=== PATIENT | female | born 1960 | race Caucasian/White ===

== ENCOUNTER 2023-05-12 12:26 | Emergency (ER) | payer BC, SELFPAY ==
[2023-05-12 12:28] VITALS: BP 118/85
[2023-05-12 12:50] LABS: % Basophils 0.4 % (0-2); % Eosinophils 0.4 % (0-6); % Immature Granulocytes 0.4 % (0-0.5); % Lymphocytes 15.3 % (20.5-51.1); % Monocytes 14.5 % (1.7-9.3); Absolute Lymphocytes 0.4 10^3/uL (1.2-3.4); Absolute Monocytes 0.4 10^3/uL (0.1-0.6); Absolute Neutrophils 1.7 10^3/uL (1.4-6.5); Hematocrit 34.8 % (37.0-47.0); Hemoglobin 12.3 g/dL (12.0-16.0); Mean Corp Hgb Conc. 35.3 g/dL (33.0-37.0); Mean Corpuscular Volume 84.9 fL (81.0-99.0); Mean Platelet Volume 11.3 fL (7.4-10.4); Nucleated Red Blood Cells % 0 %; Platelet Count 114 10^3/uL (130-400); Red Cell Dist. Width 12.8 % (11.5-14.5); White Blood Cell Count 2.5 10^3/uL (4.8-10.8)
[2023-05-12 13:05] LABS: Lactic Acid 0.9 mmol/L (0.7-2.0)
[2023-05-12 13:07] LABS: ALT (SGPT) 143 U/L (0-35); AST (SGOT) 298 U/L (14-36); Albumin 4.2 g/dl (3.5-5.0); Alkaline Phosphatase 73 U/L (38-126); Blood Urea Nitrogen 13 mg/dl (7-17); Calcium 8.9 mg/dl (8.4-10.2); Carbon Dioxide 25 mmol/L (22-30); Chloride 101 mmol/L (98-107); Glucose 125 mg/dl (70-99); Potassium 3.6 mmol/L (3.5-5.1); Sodium 139 mmol/L (135-145); Total Bilirubin 1.1 mg/dl (0.2-1.3); eGFR > 60.00
[2023-05-12 13:22] LABS: COVID-19 Antigen Negative (Negative)
[2023-05-12 13:36] VITALS: BP 117/48
[2023-05-12 13:38] VITALS: BMI 34.9
--- NOTE | 2023-05-12 13:57 | ED.GENMED ---
History of Present Illness
General
Chief Complaint: Fever
Time Seen by Provider: 05/12/23 13:57
Travel History
Have you had any contact with someone who has COVID-19?: No
Do you have any symptoms of coronavirus? Fever > 100 degrees, chills, cough, shortness of breath, sore throat, loss of taste or smell, muscle aches, or headache?: Yes
Symptoms:: fever
History of Present Illness
History of Present Illness:
HPI: Patient presents with fever that started last night. This is associated with a headache with no neck pain or any change in mental status. She states that she recently returned from [facility] where she was 'in the life for mosquitoes'. She
has no pneumonia or UTI symptoms. She reports no rash. She vomited today and could not tolerate taking additional Tylenol as she did yesterday.
EXAM:
GENERAL: Fairly well appearing in no distress but she has noted to be febrile and she does appear somewhat weak
HEENT: Moist oral mucosa
CARDIOVASCULAR: 2 out of 6 systolic ejection murmur noted in the upper sternal borders, normal heart rate and rhythm, No chest wall tenderness
PULMONARY: No respiratory distress, breath sounds are clear and equal
ABDOMEN: Soft with no peritoneal signs, no tenderness, elevated BMI
NEUROLOGIC: Excellent strength all extremities, no coordination deficits, normal chin to chest testing
PSYCHIATRIC: Appropriate mental status, normal insight and judgement
EXTREMITIES: Nontender, no edema, moves all extremities equally
SKIN: No rash, no lesions
ED COURSE:
2:05 PM: I initially evaluated patient
NUMBER AND COMPLEXITY OF PROBLEMS ADDRESSED AT THE ENCOUNTER
� Chronic conditions affecting care: High blood pressure, hyperlipidemia, diverticulitis, GERD, 'prediabetes'
� Acute Exacerbation and/or Progression of Chronic Illness: This is an acute problem
� Differential Diagnosis includes: Viral syndrome, cholecystitis, UTI, pneumonia, sepsis unlikely
AMOUNT AND/OR COMPLEXITY OF DATA TO BE REVIEWED AND ANALYZED
� I performed an independent evaluation of and my interpretation is:
EKG:
CT:
X-rays: Chest x-ray negative
Laboratory Studies: White count is low at 2.5, ANC 1700, hemoglobin is normal but platelets are slightly low at 114, chemistries unremarkable with exception of mild transaminase elevation, COVID and flu are negative, lactic
normal
Other: Ultrasound shows some gallstones without evidence of cholecystitis
� Review of other/old records: Patient had colonoscopy last year
� Clinical information was obtained by an independent historian: I spoke to her at bedside
� Prescriptions/Medications Considered but not given:
� Further testing considered but not performed:
RISK OF COMPLICATIONS AND/OR MORBIDITY OR MORTALITY OF PATIENT MANAGEMENT
� Social determinants of health affecting care: Lives at home
� Discussion with other providers: Since she just returned from [facility], and reports significant amount of mosquito bites, I reached out to IDDr. Quinones at 2:20 PM
� Escalation of care including admission/observation vs risk of discharge considered: The patient is fairly well appearing. Mild leukopenia noted in the setting of fever. She did have vomiting but no right upper quadrant
tenderness. Ultrasound imaging relatively unremarkable exception of stones but no sign of cholecystitis. Chest x-ray clear. Testing for Dengue, Chickungunya, and Zika are all pending. Urinalysis does show an increased number of white cells
however there is a significant amount squamous epithelial cells. I talked about holding off on antibiotics at this time and waiting for the culture however the patient strong prefers starting antibiotics at this time. I have also given her contact
information for the general surgeon she did have nausea with fever and elevated transaminases with gallstones on imaging but no clear sign for infection.
Past History
Past History
ED Past Medical History: HTN, Hypercholesterolemia, Hypothyroidism and Other (Diverticulitis)
ED Past Surgical History: Gynecological (Hysterectomy), Orthopedic (Ankle ORIF) and Other (Breast reduction, abdominoplasty)
Social History
Tobacco: Non-smoker
Alcohol: None
Family History
Family History: CAD and Other (Brother and father with diverticulitis)
Phy Exam
Physical Exam
Physical Exam:
See HPI
Course
Orders/Labs/Results
Orders:
Orders
05/12/23 12:34
COVID-19 Antigen Urgent
Source: Nasal Swab
Complete Blood Count/With Diff Urgent
Comprehensive Metabolic Panel Urgent
Lactic Acid Urgent
Influenza A+B Rapid Molecular Urgent
YUSEF Source: Nasal Swab
Specimen Description:
05/12/23 12:35
Blood Culture Urgent
YUSEF Source: Blood/Venous
Specimen Description:
05/12/23 14:07
0.9% Sodium Chloride 1000 ml [Nss] 1,000 ml IV BOLUS
Ketorolac [Toradol] 15 mg IV NOW STA
US Abdomen Complete/Upper Urgent
Comment:
Reason For Exam: fever high ALT/AST
05/12/23 14:08
Ondansetron Injectable [Zofran] 4 mg IV NOW STA
CR Chest - 2 Views Urgent
Comment:
Reason For Exam: fever
05/12/23 15:24
Urinalysis Reflex To Culture Urgent
Date Specimen was Collected: 05/12/23
Time Specimen was Collected: 14:11
Urine Microscopic Reflex Cult Urgent
Urine Culture Urgent
YUSEF Source: U
Specimen Description:
Date Specimen was Collected: 05/12/23
Time Specimen was Collected: 14:11
05/12/23 15:29
Add On- LAB Urgent
Tests Added?: Zika, Chikungunya, Dengue - IgG and IgM
05/12/23 16:11
Cephalexin Monohydrate [Keflex] 500 mg PO NOW STA
Abnormal Lab Results
05/12/23 05/12/23
12:34 15:24
WBC 2.5 L 10^3/uL
(4.8-10.8)
RBC 4.10 L 10^6/uL
(4.20-5.40)
Hct 34.8 L %
(37.0-47.0)
Plt Count 114 L 10^3/uL
(130-400)
MPV 11.3 H fL
(7.4-10.4)
Absolute Lymphs (auto) 0.4 L 10^3/uL
(1.2-3.4)
Lymphocytes % 15.3 L %
(20.5-51.1)
Monocytes % 14.5 H %
(1.7-9.3)
Glucose 125 H mg/dl
(70-99)
AST 298 H U/L
(14-36)
ALT 143 H U/L
(0-35)
Urine Ketones 2+ A
(Negative)
Leukocyte Esterase Rfl 2+ A
(Negative)
Urine WBC (Reflex) 80-90 A /HPF
(0-5)
Urine Bacteria (Reflex) Moderate A
(Negative)
Urine Albumin (Reflex) 1+ A
(Neg - Trace)
05/12/23 12:34
05/12/23 12:34
Vital Signs
Initial and Last Documented VS:
Initial Vital Signs
Temp Pulse Resp BP Pulse Ox
101.2 F H 76 16 118/85 98
05/12/23 12:28 05/12/23 12:28 05/12/23 12:28 05/12/23 12:28 05/12/23 12:28
Last Documented Vital Signs
Temp Pulse Resp BP Pulse Ox
101.2 F H 81 15 136/60 94
05/12/23 12:28 05/12/23 15:00 05/12/23 14:30 05/12/23 14:00 05/12/23 15:00
*Critical Care Note
Total Time (30-74mins, 75-104mins- exclusive of procedures): Not Applicable
ED Attending Note
-
Portions of this chart may have been created with voice recognition software.� Occasional wrong word or��sound alike� substitutions may have occurred due to the inherent limitations of voice recognition software.
Discharge Plan
Departure
Patient Disposition: Home (Routine Discharge)
Date of Disposition: 05/12/23
Time of Disposition: 16:06
Patient with high blood pressure during this ER visit?: Yes
Discharge Problem:
Fever
Instructions: Gallstones (DC), Fever, Adult (DC), Viral Syndrome (DC), BLOOD PRESSURE
Prescriptions:
New
cephalexin 500 mg capsule
500 mg PO TID Qty: 21 0RF
No Action
furosemide 40 MG tablet
40 mg PO DAILY
lisinopril 5 MG tablet
5 mg PO DAILY
levothyroxine 25 MCG tablet
25 mcg PO DAILY
citalopram 20 MG tablet
40 mg PO DAILY
potassium chloride 8 MEQ tablet extended release
8 meq PO DAILY
rosuvastatin 20 MG tablet
20 mg PO HS
cholecalciferol (vitamin D3) 2,000 UNITS tablet
2,000 unit PO DAILY
Pts Own Cbd Tincture
14 mg PO BID
metformin 500 MG tablet
500 mg PO HS Qty: 0 0RF
Rx Instructions:
REstart on Saturday evening
Referrals:
Rika Peters MD [Family Provider] -
René Frankel MD [Active] - Follow up in 2-3 days
Activity Restrictions/Additional Instructions:
It is possible that your fever could be related to a virus. COVID and flu testing are negative. Testing for Zika, chikungunya, and Dengue are pending. You will only be notified if positive. Your AST and ALT are slightly elevated. You did have
an increased number of white cells in the urine however this could be a contaminated specimen, but we can try antibiotics for now. Since he did have some stones in your gallbladder ultrasound, I have given you the contact information for local
general surgeon. Return here if worse.
Interventions
Interventions:
*Risk Screen - Suicide Last Done: 05/12/23 13:38
*General Assessment Last Done: 05/12/23 13:38
*Neglect/Abuse Screening Last Done: 05/12/23 13:38
ED- Fall Risk Assessment Last Done: 05/12/23 13:38
*ED COVID-19 Vaccine History Last Done: 05/12/23 12:28
ED- Neurological Assessment Last Done: 05/12/23 13:38
ED-Skin Assessment Last Done: 05/12/23 13:38
[2023-05-12 14:00] VITALS: BP 136/60
[2023-05-12] MEDS: NSS 1000 IV (14:23)
[2023-05-12] MEDS: ZOFRAN 4 MG IV (14:23)
[2023-05-12] MEDS: TORADOL 15 MG IV (14:23)
[2023-05-12 15:37] LABS: Urine Albumin 1+ (Neg - Trace); Urine Bilirubin Negative (Negative); Urine Character Clear (Clear); Urine Color Yellow; Urine Glucose Negative (Negative); Urine Ketone 2+ (Negative); Urine Leukocyte 2+ (Negative); Urine Nitrite Negative (Negative); Urine Occult Blood Negative (Negative); Urine Specific Gravity 1.025 (<1.030); Urine Urobilinogen Negative (Neg - 1+)
[2023-05-12 15:45] LABS: Urine Red Blood Cell None Seen /HPF (0-2); Urine Squamous Cell >30 /LPF (Few)
[2023-05-12 15:46] LABS: Urine Bacteria Moderate (Negative); Urine White Cell 80-90 /HPF (0-5)
[2023-05-12] MEDS: KEFLEX 500 MG PO (16:17)
== END 2023-05-12 16:20 | disposition home or self-care (01) ==
LOC: EMR 12:26
PROVIDERS: Emergency Medicine; EMERGENCY PHYSICIAN Emergency Medicine; FAMILY PHYSICIAN Student in an Organized Health Care Education/Training Program
DX: R50.9 Fever, unspecified (principal); E03.9 Hypothyroidism, unspecified; E78.00 Pure hypercholesterolemia, unspecified; I10 Essential (primary) hypertension; Z82.49 Family history of ischemic heart disease and other diseases of the circulatory system; Z83.79 Family history of other diseases of the digestive system; Z90.710 Acquired absence of both cervix and uterus
CPT/HCPCS: 99284; 96374; 96375; 96361; 71046; 76700; 80053; 81003; 81015; 83605; 85025; 87040; 87086; 87502; 87811

== ENCOUNTER → 2023-08-09 08:00 | Outpatient (REF) | payer OTHER, SELFPAY ==
[2023-08-09 08:53] VITALS: BMI 37.1
== END ==
LOC: SDSPAT 08:00
PROVIDERS: ATTENDING PHYSICIAN Surgery; FAMILY PHYSICIAN Internal Medicine; OTHER PHYSICIAN Internal Medicine
DX: K80.20 Calculus of gallbladder without cholecystitis without obstruction (principal)
CPT/HCPCS: 36415; 93005

== ENCOUNTER 2023-09-02 12:43 | Inpatient (IN) | payer OTHER, SELFPAY ==
[2023-09-02] VITALS (18 sets, daily range): BP systolic 94–150; BP diastolic 47–97; BMI 38.2
[2023-09-02 07:00] LABS: ALT (SGPT) 179 U/L (0-35); AST (SGOT) 410 U/L (14-36); Albumin 4.5 g/dl (3.5-5.0); Alkaline Phosphatase 142 U/L (38-126); Blood Urea Nitrogen 16 mg/dl (7-17); Calcium 9.6 mg/dl (8.4-10.2); Carbon Dioxide 25 mmol/L (22-30); Chloride 104 mmol/L (98-107); Estimated Creatinine Clearance 93 ml/min; Glucose 133 mg/dl (70-99); Potassium 3.2 mmol/L (3.5-5.1); Sodium 141 mmol/L (135-145); Total Bilirubin 1.5 mg/dl (0.2-1.3); Total Protein 7.4 g/dl (6.3-8.2); eGFR > 60.00
[2023-09-02 07:06] LABS: % Basophils 0.3 % (0-2); % Eosinophils 2.1 % (0-6); % Immature Granulocytes 0.4 % (0-0.5); % Lymphocytes 23.9 % (20.5-51.1); % Monocytes 7.1 % (1.7-9.3); % Neutrophils 66.2 % (42.2-75.2); Absolute Eosinophils 0.1 10^3/uL (0-0.7); Absolute Lymphocytes 1.6 10^3/uL (1.2-3.4); Absolute Monocytes 0.5 10^3/uL (0.1-0.6); Absolute Neutrophils 4.5 10^3/uL (1.4-6.5); Hematocrit 33.8 % (37.0-47.0); Hemoglobin 12.2 g/dL (12.0-16.0); Mean Corp Hgb Conc. 36.1 g/dL (33.0-37.0); Mean Corpuscular Hgb 29.7 pg (27.0-31.0); Mean Corpuscular Volume 82.2 fL (81.0-99.0); Mean Platelet Volume 10.5 fL (7.4-10.4); Nucleated Red Blood Cells % 0 %; Platelet Count 159 10^3/uL (130-400); Red Blood Cell Count 4.11 10^6/uL (4.20-5.40); Red Cell Dist. Width 12.6 % (11.5-14.5); White Blood Cell Count 6.7 10^3/uL (4.8-10.8)
[2023-09-02 07:10] LABS: Troponin I < 0.012 ng/ml
--- NOTE | 2023-09-02 07:41 | ED.GENMED ---
History of Present Illness
General
Chief Complaint: Abdominal Pain
Source: patient
Exam Limitations: none
Time Seen by Provider: 09/02/23 07:15
Nursing documentation reviewed up to this point in time: agreed with
Travel History
Have you had any contact with someone who has COVID-19?: No
Do you have any symptoms of coronavirus? Fever > 100 degrees, chills, cough, shortness of breath, sore throat, loss of taste or smell, muscle aches, or headache?: No
History of Present Illness
History of Present Illness:
The patient is a 63-year-old female with known history of gallstones who reports she woke up at around 3:20 this morning with severe right upper abdominal pain and vomiting. Patient reports she did have her gallbladder taken out with Dr. Frankel in
about 2 weeks. Patient reports the pain is so severe that she cannot wait. She denies fever. In addition, patient noticed palpitations this morning when she woke up. On arrival, EKG showed A-fib with rapid heart rate. Patient reports she has
never had a history of A-fib before.
Past History
Past History
ED Past Medical History: HTN, Hypercholesterolemia, Hypothyroidism and Other (Diverticulitis)
ED Past Surgical History: Gynecological (Hysterectomy), Orthopedic (Ankle ORIF) and Other (Breast reduction, abdominoplasty)
Social History
Tobacco: Non-smoker
Alcohol: None
Drug: None
Personal: Other
Living: with family
Employment: Other
Family History
Family History: CAD and Other (Brother and father with diverticulitis)
Review of Systems
Review of Systems
Allergies reviewed?: Yes
All Other Systems: ROS reviewed and negative except as documented in HPI and ROS
Constitutional: Reports no symptoms
EENT: Reports no symptoms
Respiratory: Reports no symptoms
Cardiac: Reports palpitations
ABD/GI: Reports abdominal pain, nausea, vomiting and anorexia
: Reports no symptoms
Musculoskeletal: Reports no symptoms
Skin: Reports no symptoms
Neurological: Reports no symptoms
Endocrine: Reports no symptoms
Hematologic/Lymphatic: Reports no symptoms
Psychiatric: Reports no symptoms
Phy Exam
Physical Exam
Physical Exam:
Physical Exam
General: no apparent distress, not acutely ill
Neck: supple. no meningeal signs. normal psoterior pharynx
Heart: s1/s2 regular rate and rhythm, no murmur. equal radial pulses.
Lungs: no acute respiratory distress. clear bilaterally
Abdomen: Soft. Right upper quadrant tenderness. No rebound or guarding. No pulsatile mass
Neuro: alert and oriented. no focal neurological deficits
Skin: no rash
Psychiatric: well kept. interactive and cooperative
Extremities: no edema. no calf tenderness. negative homans. good distal pulses
Course
Orders/Labs/Results
Orders:
Orders
09/02/23 06:23
Electrocardiogram (*1) Urgent
Reason for Study: Chest Pain
Cardiac Monitoring- Treatment ONCE
EKG- Treatment ONCE
IV Insert/Care/Rem.- Treatment PRN
O2 Therapy [RESP] Urgent
Titrate/Wean O2 to maintain O2 sat greater than (%): 90
Special Instructions: Maintain sats >/=90%
Pulse Ox/spot Check [RESP] Urgent
Quantity: 1
Special Instructions: ON ROOM AIR
09/02/23 06:37
Complete Blood Count/With Diff Urgent
Comprehensive Metabolic Panel Urgent
Lipase Urgent
Comment: ADD ON
Troponin I Urgent
09/02/23 07:31
Diltiazem HCl [Cardizem] 25 mg .ROUTE .STK-MED ONE
09/02/23 07:36
Electrocardiogram (*1) Urgent
Reason for Study: Other
Other Reason for Exam: rhythm change
09/02/23 07:38
EKG- Treatment ONCE
09/02/23 07:40
Add On- LAB Urgent
Tests Added?: lipase
Morphine Sulfate 4 mg IV NOW STA
Ondansetron Injectable [Zofran] 4 mg IV NOW STA
US Abdomen Complete/Upper Urgent
Comment:
Reason For Exam: Ruq PAIN
09/02/23 07:41
PTT Urgent
Prothrombin Time Urgent
Abnormal Lab Results
09/02/23
06:37
RBC 4.11 L 10^6/uL
(4.20-5.40)
Hct 33.8 L %
(37.0-47.0)
MPV 10.5 H fL
(7.4-10.4)
Potassium 3.2 L mmol/L
(3.5-5.1)
Glucose 133 H mg/dl
(70-99)
Total Bilirubin 1.5 H mg/dl
(0.2-1.3)
AST 410 H U/L
(14-36)
ALT 179 H U/L
(0-35)
Alkaline Phosphatase 142 H U/L
(38-126)
Lipase 395 H U/L
(23-300)
09/02/23 06:37
09/02/23 06:37
Vital Signs
Initial and Last Documented VS:
Initial Vital Signs
Temp Pulse Resp BP Pulse Ox
98.4 F 146 18 129/97 99
09/02/23 06:23 09/02/23 06:23 09/02/23 06:23 09/02/23 06:23 09/02/23 06:23
Last Documented Vital Signs
Temp Pulse Resp BP Pulse Ox
98.4 F 157 16 130/91 90
09/02/23 06:23 09/02/23 07:30 09/02/23 07:30 09/02/23 07:00 09/02/23 07:30
MDM/Problems Addressed
Differential Diagnosis Includes:
Symptomatic gallbladder disease, acute cholecystitis, acute pancreatitis
MDM/Problems Addressed:
Patient presents with acute on chronic right upper quadrant pain
Chronic conditions affecting care:
Given patient has a history of chronic gallstones, she is at increased risk of acute cholecystitis and symptomatic gallbladder disease
Chronic conditions affecting care: HTN
Acute Exacerbation and/or Progression of Chronic Illness: HTN
*Radiology
Radiology exam reviewed: radiology read reviewed
*Pulse Oximetry
Patient hypoxic: no
*EKG
Interpreted by ED Provider?: Yes
Interpretation: abnormal
Comparison EKG: changes noted (New onset A-fib)
Rate: tachycardiac
Rhythm: a-fib
Smiley: left axis deviation
Interval: normal interval
Ischemia: non-specific ST changes
*Pin Drafting Machine Operator Interpretation
Rate: tachycardiac
Interpretation: abnormal
Rhythm: a-fib
*Critical Care Note
Total Time (30-74mins, 75-104mins- exclusive of procedures): Not Applicable
Data Reviewed
Review of Other/Old Records Reveals: Radiology Studies (Ultrasound reviewed from April 2023 which showed gallstones without acute cholecystitis)
Source: patient
Patient Management
Discussion with other providers: Hospitalist and Other (Discussed case with Dr. Frankel who agreed to see patient while she is in the hospital for management for the gallbladder)
Escalation/DeEscalation of care consider admission/obs:
Given patient has intractable pain from symptomatic gallbladder disease, she will be admitted to the hospital. Dr. Frankel aware and agreed to evaluate her. In addition, I held off on anticoagulation because she is no longer in A-fib and I am
unsure when she will potentially need an acute cholecystectomy
Update Note
Update Note:
At around 7:30 AM, patient self converted to normal sinus rhythm. EKG at that time shows a normal sinus rhythm with left axis deviation, normal heart rate, and nonspecific ST changes. Normal QRS.
ED Attending Note
-
Portions of this chart may have been created with voice recognition software.� Occasional wrong word or��sound alike� substitutions may have occurred due to the inherent limitations of voice recognition software.
Discharge Plan
Departure
Patient Disposition: Admit
Date of Disposition: 09/02/23
Time of Disposition: 09:45
Admit to: Med/Surg
Presentation/result/management discussed w/ accepting MD/DO: Hospitalist
Condition: Good
Discharge Problem:
Symptomatic gallbladder disease, Atrial fibrillation, new onset
Prescriptions:
No Action
furosemide 40 MG tablet
40 mg PO DAILY
lisinopril 5 MG tablet
5 mg PO DAILY
levothyroxine 25 MCG tablet
25 mcg PO DAILY
citalopram 20 MG tablet
40 mg PO DAILY
potassium chloride 8 MEQ tablet extended release
8 meq PO DAILY
rosuvastatin 20 MG tablet
20 mg PO HS
cholecalciferol (vitamin D3) 2,000 UNITS tablet
2,000 unit PO DAILY
Pts Own Cbd Tincture
14 mg PO BID
metformin 500 MG tablet
500 mg PO HS Qty: 0 0RF
Rx Instructions:
REstart on Saturday evening
cephalexin 500 mg capsule
500 mg PO TID Qty: 21 0RF
Referrals:
Dasia Colbert MD [Family Provider] -
Interventions
Interventions:
*Risk Screen - Suicide Last Done: 09/02/23 06:23
*General Assessment Last Done: 09/02/23 06:23
*Neglect/Abuse Screening Last Done: 09/02/23 06:23
*ED COVID-19 Vaccine History Last Done: 09/02/23 06:23
KF-Bseanr-Xekzmscxpc Assessment Last Done: 09/02/23 06:28
Discharge Date and Time
Print Language: HUNGARIAN
[2023-09-02] MEDS: MORPHINE SULFATE 4 MG IV (07:47)
[2023-09-02] MEDS: ZOFRAN 4 MG IV (07:48)
[2023-09-02 07:59] LABS: INR 0.93; PT 12.2 Sec (11.4-14.6)
[2023-09-02 08:00] LABS: APTT 23.9 Sec (23.4-35.0)
[2023-09-02 08:27] LABS: Lipase 395 U/L (23-300)
--- NOTE | 2023-09-02 11:09 | CON.GS ---
Addendum entered and electronically signed by Hussain Smiley MD 09/02/23 12:51:
I saw and examined the patient independently.
The Manager Client's note was reviewed and I agree with the note, assessment and plan except where noted below.
Comment: This is a 63-year-old female with no significant past medical history other than previous and known biliary colic originally scheduled to have a laparoscopic cholecystectomy with Dr. Frankel however had to reschedule. She
presents with a 1 day history of severe right upper quadrant pain. Ultrasound shows dilated gallbladder with multiple stones as well as a dilated common bile duct to 10 mm. LFTs slightly elevated. Tender to palpation on exam. High suspicion for
acute cholecystitis with possible concurrent choledocholithiasis.
Will plan for laparoscopic cholecystectomy and intraoperative cholangiogram.
N.p.o., IV fluids, IV antibiotics.
Risks/Benefits/Alternatives, expected postoperative course and possible complications (bleeding, infection, injury to surrounding structures, acute/chronic pain) discussed at length. Patient wishes to proceed with surgery. All questions answered.
Consent obtained.
I spent roughly 60 minutes in total for the care of this patient today including direct patient care and counseling, reviewing labs, imaging, coordination of care, as well as documentation.
Original Note:
Consultation
-
Date/Time Consultation Requested: 09/02/2023
Date/Time Consultation Performed: 09/02/2023
Medical History
-
Chief Complaint: Abdominal Pain
History of Present Illness:
Ms. Herrera is a 63 year-old female with PMH of Hypertension, Hyperlipidemia, Hypothyroidism, known hx of gallstones who presents to ED today complaining of severe right Upper abdominal pain and vomiting that started this morning around 3am. She
reports pain was a 7 out of 10 hence she had to come in for evaluation. Patient with a known history of Gallstone, previously seen in the ED 05/12/2023 for sx of fever and elevated LFTs. Evaluation with Ultrasound of Abdomen at that time identified
multiple shadowing gallstones in the Lumen with No biliary ductal dialation and common bile duct measured 6mm. She was evaluated by Dr Frankel 07/30/23 as an outpatient in the setting of symptomatic cholelithiasis, and the plan was to proceed with
Cholecystectomy 08/31/23, eventually rescheduled by patient to 10/07/2023.
Today, patient is markedly tender to the RUQ. Evaluation in the ED with abdominal ultrasound showed Mildly distended gallbladder containing multiple stones, including a cluster near the gallbladder neck and Mildly dilated common bile duct measuring
10 mm. On arrival, EKG showed A-fib with rapid heart rate. Patient reports no history of A-fib in the past.
Past Medical History
Past Medical History: Other (Hyperlipidemia, anxiety, glaucoma, hypothyroidism, hypertension, cataracts, type 2 diabetes mellitus, obstructive sleep apnea on CPAP, fatty liver, nonobstructive atherosclerosis of carotid artery, history of gallstones,
history of T8 fracture, diverticulosis, follicular lymphoma-breast Bx 2022)
Past Surgical History: Other (Tonsillectomy, left ankle surgery, breast augmentation, left foot/ankle-stem cell injections 12/2019, right breast BX-benign 2022, right breast BX, lymph node removal September 2022)
Social History
Tobacco: Non-Smoker
Alcohol: None
Drug: None
Living: With Family
Employment: Employed
Family History
Family History: CAD (Father) and Other (Mother- A-fib)
Allergies / Home Medications
Allergy/AdvReac Type Severity Reaction Status Date / Time
latex Allergy Swelling Verified 05/12/23 12:30
lisinopril Allergy Vomiting Verified 09/02/23 07:46
�Medication �Instructions �Recorded �Confirmed �Type
Pts Own Cbd Tincture 14 mg PO HSPRN PRN sleep 11/29/17 09/02/23 History
cholecalciferol (vitamin D3) 50 2,000 unit PO DAILY Supplement 11/29/17 09/02/23 History
mcg (2,000 unit) tablet
citalopram 20 mg tablet 20 mg PO Mental Health 11/29/17 09/02/23 History
furosemide 40 mg tablet 40 mg PO DAILYPRN PRN fluid 11/29/17 09/02/23 History
overload
levothyroxine 25 mcg tablet 25 mcg PO Q48H Thyroid 11/29/17 09/02/23 History
rosuvastatin 20 mg tablet 20 mg PO HS High Cholesterol 11/29/17 09/02/23 History
Timolol 1 drp BOTH EYES DAILY Eye Condition 09/02/23 09/02/23 History
aspirin 81 mg chewable tablet 81 mg PO DAILY Blood Clot 09/02/23 09/02/23 History
Prevention/Tx
bisacodyl 5 mg tablet,delayed 5 mg PO DAILYPRN PRN constipation 09/02/23 09/02/23 History
release (Dulcolax (bisacodyl))
cyanocobalamin (vitamin B-12) 1,000 mcg PO DAILY Supplement 09/02/23 09/02/23 History
1,000 mcg tablet
dextroamphetamine-amphetamine ER 15 mg PO DAILY Neurological 09/02/23 09/02/23 History
15 mg 24hr capsule,extend release Condition
ezetimibe 10 mg tablet 10 mg PO DAILY High Cholesterol 09/02/23 09/02/23 History
latanoprost 0.005 % eye drops 1 drp BOTH EYES HS Eye Condition 09/02/23 09/02/23 History
levothyroxine 50 mcg tablet 50 mcg PO Q48H Thyroid 09/02/23 09/02/23 History
semaglutide 2 mg/dose (8 mg/3 mL) 2 mg SC SA weight loss 09/02/23 09/02/23 History
subcutaneous pen injector (Ozempic)
Review of Systems
-
All other systems: Negative unless noted
A 10 point review of systems was completed, and was negative except as per HPI.
Physical Exam
Vital Signs
Temp Pulse Resp BP Pulse Ox
98.4 F 65 12 94/82 97
09/02/23 06:23 09/02/23 10:30 09/02/23 10:30 09/02/23 10:02 09/02/23 09:27
09/01/23 09/02/23 09/03/23
06:59 06:59 06:59
Actual Weight 101 kg
Body Mass Index (BMI) 38.2
Lab Results
09/02/23 06:37
09/02/23 06:37
WBC 6.7 10^3/uL (4.8-10.8) 09/02/23 06:37
Hgb 12.2 g/dL (12.0-16.0) 09/02/23 06:37
Hct 33.8 % (37.0-47.0) L 09/02/23 06:37
Plt Count 159 10^3/uL (130-400) 09/02/23 06:37
Abs Immat Gran (auto) 0.0 10^3/uL (0-0.05) 09/02/23 06:37
Neutrophils % 66.2 % (42.2-75.2) 09/02/23 06:37
Physical Exam
General: Well Developed and Well Nourished
HEENT: Moist Mucous Membranes
Respiratory: Clear; Negative Wheezes or Rales
Cardiac: S1/S2 and Regular Rhythm
GI: Soft, Non Distended and Tender (Right upper quadrant tenderness)
Musculoskeletal: No Edema
Skin: Warm
Neuro: Awake, Alert and AO x 3
Psych: Calm
Assessment / Plan
-
Ms. Herrera is a 63 year-old female with PMH of Hypertension, Hyperlipidemia, Hypothyroidism, known hx of gallstones who presents to ED today complaining of severe right Upper abdominal pain and vomiting. Abdominal ultrasound with cholelithiasis,
mildly dilated common bile duct measuring 10 mm, previously 6 mm on previous study 05/12/2023. Mildly elevated AST ALT; and AST more elevated than ALT. Elevated alkaline phosphatase and T. bilirubin, all suggesting choledocholithiasis.
Calculus cholecystitis
Choledocholithiasis
-Start IV Zosyn for empiric coverage
-N.p.o.
-Possible OR today for laparoscopic cholecystectomy plus cholangiogram
New onset atrial fibrillation on presentation
-Now in normal sinus rhythm
-Hold off on anticoagulation
-Consult cardio
--- NOTE | 2023-09-02 12:04 | HPS.HSE ---
Addendum entered and electronically signed by Josh Grullon MD 09/09/23 09:09:
Home Medications Table - record
�Medication �Instructions �Recorded �Confirmed
Pts Own Cbd Tincture 14 mg PO HSPRN PRN sleep 11/29/17 09/02/23
cholecalciferol (vitamin D3) 50 2,000 unit PO DAILY Supplement 11/29/17 09/02/23
mcg (2,000 unit) tablet
citalopram 20 mg tablet 20 mg PO HS Mental Health 11/29/17 09/02/23
furosemide 40 mg tablet 40 mg PO DAILYPRN PRN fluid 11/29/17 09/02/23
overload
levothyroxine 25 mcg tablet 25 mcg PO Q48H Thyroid 11/29/17 09/02/23
rosuvastatin 20 mg tablet 20 mg PO HS High Cholesterol 11/29/17 09/02/23
Timolol 1 drp BOTH EYES DAILY Eye Condition 09/02/23 09/03/23
bisacodyl 5 mg tablet,delayed 5 mg PO DAILYPRN PRN constipation 09/02/23 09/02/23
release (Dulcolax (bisacodyl))
cyanocobalamin (vitamin B-12) 1,000 mcg PO DAILY Supplement 09/02/23 09/02/23
1,000 mcg tablet
dextroamphetamine-amphetamine ER 15 mg PO DAILY Neurological 09/02/23 09/02/23
15 mg 24hr capsule,extend release Condition
ezetimibe 10 mg tablet 10 mg PO DAILY High Cholesterol 09/02/23 09/02/23
latanoprost 0.005 % eye drops 1 drp BOTH EYES HS Eye Condition 09/02/23 09/02/23
levothyroxine 50 mcg tablet 50 mcg PO Q48H Thyroid 09/02/23 09/02/23
semaglutide 2 mg/dose (8 mg/3 mL) 2 mg SC SA weight loss 09/02/23 09/02/23
subcutaneous pen injector (Ozempic)
apixaban 5 mg tablet (Eliquis) 5 mg PO BID 30 days #60 tabs 09/04/23
diltiazem HCl 120 mg 120 mg PO DAILY 30 days #30 caps 09/04/23
capsule,extended release 24 hr
Original Note:
Family Physician
-
Family Physician: Dasia Colbert MD
Chief Complaint
-
Abdominal pain
History of Present Illness
63-year-old female with a past medical history of coronary artery disease, hyperlipidemia, hypothyroidism, anxiety/depression, and biliary colic presented with worsening right upper quadrant abdominal pain. Patient reports that her pain woke her up
at 4 AM today. Associated symptoms include nausea and vomiting. En route to the emergency room, EMS found her to have rapid atrial fibrillation. She spontaneously converted to normal sinus rhythm. She denies chest pain, denies lightheadedness,
denies shortness of breath. She did have palpitations when she was in active atrial fibrillation, it has since resolved.
She follows with Dr. Coy for biliary colic, and was scheduled to have a laparoscopic cholecystectomy on 08/31/2023. However this had to be rescheduled.
Medical History
Past Medical History
Past Medical History: Reports Other
Additional Past Medical History:
CAD, moderate left carotid stenosis, dyslipidemia, carotid stenosis, obesity, hypothyroidism, anxiety, MILTON on CPAP, follicular lymphoma, diverticulitis
Past Surgical History: Reports Other
Additional Past Surgical History:
Hysterectomy, ankle surgery, breast reduction, abdominoplasty
Social History
Alcohol: Daily
Drug: None
Family History
Family History: Not pertinent
Allergies / Home Medications
Allergies reflects when Allergies were last updated in [facility].
Home Medications with original date entered in [facility]
Allergy/Medication List:
Allergies
Allergy/AdvReac Type Severity Reaction Status Date / Time
latex Allergy Swelling Verified 05/12/23 12:30
lisinopril Allergy Vomiting Verified 09/02/23 07:46
Review of Systems
-
A 12 point ROS was completed and negative except as noted: Yes
Physical Exam
Vital Signs
Vital Signs
Temp Pulse Resp BP Pulse Ox
98.4 F 65 12 94/82 97
09/02/23 06:23 09/02/23 10:30 09/02/23 10:30 09/02/23 10:02 09/02/23 09:27
Physical Exam
General: Well Developed, Well Nourished, No Apparent Distress and Obese
HEENT: NormoCephalic, Anicteric, Moist mucous membranes and Atraumatic
Respiratory: Clear
Cardiac: S1/S2 and Regular Rhythm
GI: Soft, Non Distended and Tender
Musculoskeletal: No Clubbing, No Cyanosis and No Edema
Skin: Warm and Dry
Neuro: Awake, Alert and Oriented
Psych: Calm
Laboratory Results
-
09/02/23 06:37
09/02/23 06:37
Laboratory Results
PT 12.2 Sec (11.4-14.6) 09/02/23 07:41
INR 0.93 09/02/23 07:41
APTT 23.9 Sec (23.4-35.0) 09/02/23 07:41
Total Bilirubin 1.5 mg/dl (0.2-1.3) H 09/02/23 06:37
AST 410 U/L (14-36) H 09/02/23 06:37
ALT 179 U/L (0-35) H 09/02/23 06:37
Alkaline Phosphatase 142 U/L (38-126) H 09/02/23 06:37
Troponin I < 0.012 ng/ml 09/02/23 06:37
Lipase 395 U/L (23-300) H 09/02/23 06:37
Impression/Plan
-
HPI: 63-year-old female with a past medical history of coronary artery disease, hyperlipidemia, hypothyroidism, anxiety/depression, and biliary colic presented with worsening right upper quadrant abdominal pain. Patient reports that her pain woke
her up at 4 AM today. Associated symptoms include nausea and vomiting. En route to the emergency room, EMS found her to have rapid atrial fibrillation. She spontaneously converted to normal sinus rhythm. She denies chest pain, denies
lightheadedness, denies shortness of breath. She did have palpitations when she was in active atrial fibrillation, it has since resolved.
She follows with Dr. Coy for biliary colic, and was scheduled to have a laparoscopic cholecystectomy on 08/31/2023. However this had to be rescheduled.
#Acute calculus cholecystitis
#Dilated common bile duct
#Transaminitis
Appreciate general surgery input, suspicious for acute cholecystitis with possible choledocholithiasis
N.p.o., IV fluids, IV Zosyn, trend LFTs
Plan for laparoscopic cholecystectomy and intraoperative cholangiogram
#New onset paroxysmal atrial fibrillation in the setting of acute illness
Follows w/ Dr. Wasserman
Now back in normal sinus rhythm
Check TSH, free T4, echocardiogram, consult cardiology
#Hypokalemia
Replete by IV, recheck am labs
#Hypothyroidism
Continue Synthroid, check TSH and free T4 as above
#CAD
Continue aspirin/statin
#Hyperlipidemia
Continue statin/Zetia
#Anxiety/depression
Continue SSRI
#Obesity
On ozempic for weight loss
?Diabetic, check HgA1C
DVT ppx - SQ lovenox
Full Code
Total time spent to see the patient on the floor, examine the patient, review data and lab results, discuss treatment plan with patient, nursing staff around 75 minutes.
[2023-09-02] MEDS: ZOSYN 50 IV (12:34)
[2023-09-02] MEDS: DILAUDID 0.5 MG IV (13:40)
[2023-09-02] MEDS: KCL 260 MEQ IV (13:47)
--- NOTE | 2023-09-02 14:22 | CON.CAR ---
Addendum entered and electronically signed by Chip Musa MD 09/02/23 18:23:
I saw and examined the patient.
The MANAGER GIFT's note was reviewed and I agree with the note.
Comment: 63-year-old female patient of Dr. Virk with a history of nonobstructive CAD, moderate carotid stenosis, hyper lipidemia, diabetes and MILTON on CPAP presented with abdominal pain that was progressive. Patient had planned to have an outpatient
cholecystectomy but this plan was modified for admission and cholecystectomy today. We are called because while in the ED she had an episode of atrial fibrillation. This is new for her. Currently feeling better without complaints. On exam she is
regular rate and rhythm normal S1-S2 no murmur rubs or gallops were appreciated. Lungs are clear to auscultation. Telemetry showed sinus rhythm. EKG tracing at 09/02/2023 6:33 AM shows atrial fibrillation with ventricular recent rate response of
100 bpm.Subsequently she had normal sinus rhythm with a rate of 85 bpm. Will need to consider anticoagulation postoperatively once okay with surgeons. Will modify her medication regimen to include beta-cyndy if able postoperatively.
Will check in with her tomorrow postoperatively.
Original Note:
Consultation
Consultation Request
Date/Time Consultation Requested: 09/02/23 1359
Date/Time Consultation Performed: 09/02/23 1520
Requesting Provider: Dr. Grullon
Performing Provider: Tiny DUARTE for Dr. Musa
Reason for Consultation: AFIB
Medical History
-
Chief Complaint: abdominal pain
History of Present Illness:
63 y/o female (follows with Dr. Wasserman) with non-obstructive CAD, moderate left carotid stenosis, dyslipidemia, diabetes, carotid stenosis, obesity, hypothyroidism, anxiety, MILTON on CPAP, follicular lymphoma who was planned as OP to have elective
cholecystectomy, but overnight developed severe RUQ abdominal pain with associated nausea and vomiting. Acute cholecystitis with possible concurrent choledocholithiasis suspected. Plan for laparoscopic cholecystectomy and intraoperative
cholangiogram this evening. We are consulted since she was seen to have AFIB with RVR in the ER. She was symptomatic with palpitations. She is in SR at the time of my assessment.
Past Medical History
Past Medical History: CAD, Hypercholesterolemia, Hypothyroidism, NIDDM and Other (as above)
Social History
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
Personal: Partner
Family History
Family History: CAD (dad 7th decade) and Other (mom: afib per chart)
Allergies / Home Medications
Allergy/AdvReac Type Severity Reaction Status Date / Time
latex Allergy Swelling Verified 05/12/23 12:30
lisinopril Allergy Vomiting Verified 09/02/23 07:46
�Medication �Instructions �Recorded �Confirmed �Type
Pts Own Cbd Tincture 14 mg PO HSPRN PRN sleep 11/29/17 09/02/23 History
cholecalciferol (vitamin D3) 50 2,000 unit PO DAILY Supplement 11/29/17 09/02/23 History
mcg (2,000 unit) tablet
citalopram 20 mg tablet 20 mg PO HS Mental Health 11/29/17 09/02/23 History
furosemide 40 mg tablet 40 mg PO DAILYPRN PRN fluid 11/29/17 09/02/23 History
overload
levothyroxine 25 mcg tablet 25 mcg PO Q48H Thyroid 11/29/17 09/02/23 History
rosuvastatin 20 mg tablet 20 mg PO HS High Cholesterol 11/29/17 09/02/23 History
Timolol 1 drp BOTH EYES DAILY Eye Condition 09/02/23 09/02/23 History
aspirin 81 mg chewable tablet 81 mg PO DAILY Blood Clot 09/02/23 09/02/23 History
Prevention/Tx
bisacodyl 5 mg tablet,delayed 5 mg PO DAILYPRN PRN constipation 09/02/23 09/02/23 History
release (Dulcolax (bisacodyl))
cyanocobalamin (vitamin B-12) 1,000 mcg PO DAILY Supplement 09/02/23 09/02/23 History
1,000 mcg tablet
dextroamphetamine-amphetamine ER 15 mg PO DAILY Neurological 09/02/23 09/02/23 History
15 mg 24hr capsule,extend release Condition
ezetimibe 10 mg tablet 10 mg PO DAILY High Cholesterol 09/02/23 09/02/23 History
latanoprost 0.005 % eye drops 1 drp BOTH EYES HS Eye Condition 09/02/23 09/02/23 History
levothyroxine 50 mcg tablet 50 mcg PO Q48H Thyroid 09/02/23 09/02/23 History
semaglutide 2 mg/dose (8 mg/3 mL) 2 mg SC SA weight loss 09/02/23 09/02/23 History
subcutaneous pen injector (Ozempic)
Review of Systems
-
History Source: Patient
All other systems: Negative unless noted
Cardiac: Palpitations
Abdomen/GI: Abdominal Pain, Nausea and Vomiting
Physical Exam
Vital Signs
Temp Pulse Resp BP Pulse Ox
97.5 F 66 17 150/70 96
09/02/23 13:58 09/02/23 13:58 09/02/23 13:58 09/02/23 13:58 09/02/23 13:58
Lab Results
09/02/23 06:37
09/02/23 06:37
Troponin I < 0.012 ng/ml 09/02/23 06:37
Physical Exam
General: Well Developed, Well Nourished and No Apparent Distress
HEENT: Normocephalic and Anicteric
Respiratory: Clear and Non Labored Respirations
Cardiac: Regular Rhythm
Musculoskeletal: No Edema
Skin: Warm and Dry
Neuro: AO x 3
Impression / Plan
-
Acute cholecystitis with possible concurrent choledocholithiasis:
-Plan is for laparoscopic cholecystectomy and intraoperative cholangiogram this evening
-on abx and pain meds
PAF:
-new diagnosis
-in setting of acute illness
-now back in SR, follow telemetry
-[id number] score is 4 for age, female, DM, and vascular disease. Recommend Eliquis when safe post-op. Denies bleeding or falls.
-TSH WNL
-most recent echo as below- updated echo ordered
CAD, non-obstructive:
-stable without CP
HLD:
-continue statin
Hypokalemia:
-being replaced
-monitor closely
Data Reviewed
-
EKG: Tracing Personally Visualized and interpreted (EKG AFIB 100 BPM)
Ultrasound: Report Reviewed by me (Abdominal ultrasound: Mildly dilated common bile duct measuring 10 mm, previously 6 mm on the prior study from 05/12/2023. No intraductal calculi identified, however the distal duct is not visualized and there are
multiple stones within the gallbladder. )
Medical Tests (Nuc Med, Echo etc): Report Reviewed by me (Echo 12/27/22: Normal biventricular size and systolic function without regional wall motion abnormality. Estimated LVEF 55-60%. Mild concentric left ventricular hypertrophy. Mild aortic
stenosis. Peak gradient 15mmHg/Mean 8mmHg - using an LVOT of 1.9cm the estimated aortic valve area is 1.8cm2. )
Labs: Labs Reviewed by me
--- NOTE | 2023-09-02 15:01 | PTCARENOTE ---
pt admitted to room 210 from the ED at 1500. pt ambulated from hallway to bed without difficulty, gait steady. admission database and assessment completed as documented. pt oriented to room, bed controls, call mattson and plan of care with
verbalized understanding. pt verbalized understanding of NPO status. telemetry reading NSR in 60's. will observe.
[2023-09-02] MEDS: SYNTHROID 25 MCG PO (15:10)
[2023-09-02 15:53] LABS: TSH Reflex To Free T4 4.19 uIU/ml (0.47-4.68)
[2023-09-02] MEDS: D5/0.45%NSS with KCL 20 MEQ 1000 IV ×3 (16:06→19:54)
--- NOTE | 2023-09-02 18:59 | W.SUR.PREOP ---
Pre-Operative Surgical Note
-
I have examined this patient prior to the performance of the scheduled procedure.
The patient's condition is unchanged from the time of the current History and
Physical and the patient is able to undergo the scheduled procedure.
--- NOTE | 2023-09-02 19:00 | W.IMMPOSTOP ---
Addendum entered and electronically signed by Hussain Smiley MD 09/02/23 19:08:
Okay to start therapeutic anticoagulation in 48 hours, please confirm with the surgery service prior to initiation.
Original Note:
Surgical Immed Post Op Note
-
Primary Surgeon: Hussain Smiley MD
Assisting Surgeon: None
Pre-op Diagnosis: Acute cholecystitis
Post-op Diagnosis: Same
Procedure Performed: Laparoscopic cholecystectomy with cholangiogram
Anesthesia Type: General
Specimen / Cultures: Gallbladder and contents
Estimated Blood Loss: 11 cc
Complications: None
Operative Findings: Mildly inflamed gallbladder, particular in the cystic triangle. Some overlying omental adhesions taken down with electrocautery and blunt dissection. There was some oozing from adhesions from over the duodenum which were
clipped with 5 mm titanium clips. Critical view of safety was obtained prior to a cholangiogram which demonstrated no of filling defects, free flow of contrast into the duodenum and other than a dilated CBD, normal biliary anatomy.
POST OP PLAN:
Imaging: None
Labs: Routine AM
Diet: Advance to Regular as tolerated
Analgesia: Tylenol 650mg q6 Silver, Sonia 5mg q6 PRN, Dilaudid 0.5mg q2h PRN
Neuro/vascular checks: q4h
AC/AP: Hold Therapeutic AC, Ok for DVT PPx
Activity: Ad Edilia
Wound/Incisions/Drains: Routine
Abx: Can continue while admitted
Dispo: RNF, anticipate discharge home tomorrow.
--- NOTE | 2023-09-02 19:02 | OR.RPT ---
Operative Report
Operative Report
Patient Name: Samantha Herrera
: 1960
Date of Operation: 09/02/2023
Preoperative Diagnosis: Acute cholecystitis
Postoperative Diagnosis: Same
Procedure(s):
Laparoscopic Cholecystectomy with Cholangiogram
Surgeon(s):
Dr. Smiley
Wares Sorter(s):
YOLI Naik
Anesthesia: General
Estimated Blood Loss: 11 cc
Urine Output: None
Drains/Lines/Implants: None
Specimens:
1. Gallbladder and contents
HPI/Surgical Indications:
This is a 63-year-old female who presents with a 1 day history of right upper quadrant abdominal pain, in the setting of known biliary colic. Exam, labs and imaging are consistent with early acute cholecystitis. Risks/Benefits/Alternatives were
discussed at length, and the patient agreed to proceed with surgery.
Operative Findings: Mildly inflamed gallbladder, particular in the cystic triangle. Some overlying omental adhesions taken down with electrocautery and blunt dissection. There was some oozing from adhesions from over the duodenum which were
clipped with 5 mm titanium clips. Critical view of safety was obtained prior to a cholangiogram which demonstrated no of filling defects, free flow of contrast into the duodenum and other than a dilated CBD, normal biliary anatomy.
Procedure Description:
The patient was brought to the Operating Room and placed in the supine position with one arm tucked. Following uneventful induction of general endotracheal anesthesia, an orogastric tube was placed. The abdomen was prepped and draped in the usual
sterile fashion. A timeout was performed confirming the procedure, consent, and that IV antibiotics were infused and sequential compression devices were confirmed to be on. The abdomen was entered using a left subcostal Veress technique which
required 1 pass followed by a 11 mm right upper quadrant Optiview trochar. Pneumoperitoneum to 15 mmHg pressure was obtained without difficulty and we confirmed that no injury had occurred during our entry. The patient was positioned in reverse
Trendelenberg and rotated with the right side up slightly. Two 5mm trocars were then placed along the right subcostal margin, and a 12 mm port in the epigastrium. The gallbladder was not particularly distended however there was a fair amount of
fatty adhesions overlying the anterior surface which were carefully lysed with electrocautery and blunt dissection. There was some bleeding noted from the adhesion from over to the duodenum. This was clipped in multiple places to achieve
hemostasis. A locking grasping forceps was placed on the fundus of the gallbladder where it was then retracted cephalad and to the right. Using appropriate grasping instruments, the peritoneum overlying the triangle of Calot was incised and
extended superiorly on both the anterior and posterior gallbladder ceja. The infundibulum was dissected off the cystic plate. The cystic triangle was dissected until a critical view of safety was achieved. The cystic artery was medialized,
dissected and controlled with 2 proximal clips and 1 distal. The cystic duct/gallbladder junction in turn was identified, dissected circumferentially and a clip was placed. A ductotomy was made and a cholangiocatheter on an Santos clamp was inserted
into the cystic duct. A C-arm was draped and brought into the field. An intra-operative cholangiogram was performed and was noted to have:
No filling defects in the biliary tree
CHD and CBD were slightly dilated to roughly 10 mm
Brisk flow of contrast into the duodenum
Normal biliary anatomy
The catheter was then removed and the cystic duct was controlled with two clips by a 0 PDS Endoloop. After ensuring both the artery and duct were divided, the gallbladder was freed from the liver using electrocautery. There was no spillage of bile
or stones. The gallbladder bed was inspected and excellent hemostasis was obtained. The gallbladder was extracted through the 12 mm trocar site using an endocatch bag. The abdomen was again irrigated and excellent hemostasis was assured. All
remaining trocars were then removed and the pneumoperitoneum was evacuated. The 12 mm trocar site was closed using 0 PDS suture. All trocar sites were closed at the skin level using 4-0 Monocryl followed by Dermabond. Overall, the patient
tolerated the procedure well and was taken to the Recovery Room postoperatively in stable condition.
I was the attending physician and performed the procedure with assistance from the PA above. The assistance of YOLI Naik was required due to the complexity of the procedure. During the procedure Ttia assisted with retraction, exposure of the
tissues as well as holding camera and closure of the wound. I was present for all portions of the case, excluding wound closure
Hussain Smiley MD
[2023-09-02 19:26] LABS: Glucose - Point of Care 115 mg/dl (70-99)
[2023-09-02] MEDS: ZOSYN IV (20:32)
[2023-09-02] MEDS: CRESTOR 20 MG PO (20:34)
[2023-09-02] MEDS: CELEXA 20 MG PO (20:34)
--- NOTE | 2023-09-02 20:41 | SUR.PHASEI ---
patient received in pacu sedate, stimulated and positioned airway for optimum breathing, changed to simple mask and frequent stimuli to breathe, vss, able to wean O2 over 1 hour to nasal cannula, order obtained for diet and CPAP. Dr Roy visits
in pacu. no pain. ice pack to abdomen. remains in NSR. Awake and alert on discharge - asking about air travel on Saturday Pt's at bedside.
[2023-09-02] MEDS: XALATAN OPHTHALMIC SOLUTION BOTH EYES (21:32)
[2023-09-03] MEDS: ZOSYN 50 IV ×4 (00:01→17:04)
[2023-09-03 03:24] VITALS: BP 105/54
--- NOTE | 2023-09-03 04:17 | PTCARENOTE ---
Addendum entered by Josephine Roy RN 09/03/23 05:53:
pharmacy was called and per Kiki they did not have dose verification
Original Note:
pt Bobby held as she dose not know her dose and her partner did not call back with the home dose.
[2023-09-03] MEDS: SYNTHROID 50 MCG PO (05:08)
[2023-09-03 05:32] LABS: Hematocrit 37.4 % (37.0-47.0); Hemoglobin 13.2 g/dL (12.0-16.0); Mean Corp Hgb Conc. 35.3 g/dL (33.0-37.0); Mean Corpuscular Hgb 29.9 pg (27.0-31.0); Mean Corpuscular Volume 84.6 fL (81.0-99.0); Mean Platelet Volume 11.2 fL (7.4-10.4); Platelet Count 166 10^3/uL (130-400); Red Blood Cell Count 4.42 10^6/uL (4.20-5.40); Red Cell Dist. Width 12.6 % (11.5-14.5); White Blood Cell Count 7.3 10^3/uL (4.8-10.8)
--- NOTE | 2023-09-03 06:05 | W.PN.HOSP.TC ---
Today's Communication/Plan
-
cont abx
IVF completed
diet as tolerated
pain control
rate control as per cardio
possible discharge tomorrow.
Assessment / Plan
Assessment / Plan
Physical Exam
General: Well Developed, Well Nourished, No Apparent Distress and Obese
HEENT: NormoCephalic, Anicteric, Moist mucous membranes and Atraumatic
Respiratory: Clear
Cardiac: S1/S2 and Regular Rhythm
GI: Soft, Non Distended and Tender
Musculoskeletal: No Clubbing, No Cyanosis and No Edema
Skin: Warm and Dry
Neuro: Awake, Alert and Oriented
Psych: Calm
HPI: 63-year-old female with a past medical history of coronary artery disease, hyperlipidemia, hypothyroidism, anxiety/depression, and biliary colic presented with worsening right upper quadrant abdominal pain. Patient reports that her pain woke
her up at 4 AM today. Associated symptoms include nausea and vomiting. En route to the emergency room, EMS found her to have rapid atrial fibrillation. She spontaneously converted to normal sinus rhythm. She denies chest pain, denies
lightheadedness, denies shortness of breath. She did have palpitations when she was in active atrial fibrillation, it has since resolved.
She follows with Dr. Coy for biliary colic, and was scheduled to have a laparoscopic cholecystectomy on 08/31/2023. However this had to be rescheduled.
#Acute calculus cholecystitis
#Dilated common bile duct
#Transaminitis
surgery eval appreciated s/p laparoscopic cholecystectomy and intraoperative cholangiogram
IVF completed
cont IV Zosyn, 24h abx post-procedure as per surgery
trend LFTs
#New onset paroxysmal atrial fibrillation in the setting of acute illness
Follows w/ Dr. Wasserman
Now back in normal sinus rhythm
TSH wnl
ECHO appreciated no acute abn's, no significant change from prior ECHO
Cardio appreciated switching asa to Eliquis starting 09/03, Cardizem added 09/02
#Hypokalemia
monitor and replete as necesary
#Hypothyroidism
Continue Synthroid
TSH wnl
#CAD
Continue aspirin/statin
#Hyperlipidemia
Continue statin/Zetia
#Anxiety/depression
Continue SSRI
#Obesity
On ozempic for weight loss
?Diabetic, check HgA1C
DVT ppx - SQ lovenox
Full Code
discussed with patient
I spent a total of 50 minutes with the patient or on the floor. More than 50% of this time involved counseling and coordination of care.
Anticipated Discharge: Within 24 hours
Subjective/Interval History
-
Date of Service: September 03, 2023
Seen and examined at bedside in no acute distress resting comfortably in bed. Reports significant improvement in pain. Tolerating diet. No bowel movement but endorses flatus.
Objective Data
-
Labs:
Laboratory Results
09/03/23
04:37
WBC Pending
Hgb Pending
Hct Pending
Plt Count Pending
Sodium Pending
Potassium Pending
Chloride Pending
Carbon Dioxide Pending
BUN Pending
Creatinine Pending
Glucose Pending
Calcium Pending
Total Bilirubin Pending
AST Pending
ALT Pending
Alkaline Phosphatase Pending
Vital Signs:
Vital Signs
Temp Pulse Resp BP Pulse Ox
98.0 F 63 12 105/54 94
09/03/23 03:24 09/03/23 03:24 09/03/23 03:24 09/03/23 03:24 09/03/23 03:24
I&O
09/01/23 09/02/23 09/03/23
06:59 06:59 06:59
Intake Total 1480 / 1480
Output Total 1020 / 1020
Balance 460 / 460
[2023-09-03 06:07] LABS: ALT (SGPT) 568 U/L (0-35); AST (SGOT) 569 U/L (14-36); Albumin 4.4 g/dl (3.5-5.0); Alkaline Phosphatase 127 U/L (38-126); Blood Urea Nitrogen 20 mg/dl (7-17); Calcium 9.2 mg/dl (8.4-10.2); Carbon Dioxide 24 mmol/L (22-30); Chloride 105 mmol/L (98-107); Estimated Creatinine Clearance 72 ml/min; Glucose 168 mg/dl (70-99); Magnesium 1.9 mg/dl (1.6-2.3); Potassium 4.4 mmol/L (3.5-5.1); Sodium 141 mmol/L (135-145); Total Bilirubin 1.4 mg/dl (0.2-1.3); Total Protein 7.3 g/dl (6.3-8.2); eGFR > 60.00
[2023-09-03 06:29] LABS: TSH Reflex To Free T4 0.85 uIU/ml (0.47-4.68)
[2023-09-03 07:05] VITALS: BP 146/70
--- NOTE | 2023-09-03 08:15 | W.PN.GS2 ---
Addendum entered and electronically signed by Hussain Smiley MD 09/03/23 08:35:
I saw and examined the patient independently.
The resident's note was reviewed and I agree with the note, assessment and plan except where noted below.
Comment: Postoperative day 1 from a laparoscopic cholecystectomy with cholangiogram for acute cholecystitis. Doing well, expected postoperative course. Bilirubin is stable but the rest of her LFTs are slightly elevated from preop, this is fairly
common particularly when there is a high degree of inflammation. Her liver on gross inspection intraoperatively appeared to be consistent with fatty liver disease.
Okay for regular diet.
Pain control.
Stable from a surgery perspective for discharge and if going home today, recommend getting a CMP as an outpatient in the next few days to evaluate trend. If she is going to remain admitted, please continue to trend her CMP.
pAFib -workup per primary/cardiology. Okay for therapeutic anticoagulation, if deemed indicated, to start 09/03
Antibiotics x 24 hours, then can stop.
Discharge instructions updated and reviewed with patient.
Original Note:
Today's Communication / Plan
-
Trend LFTs
Pain control as needed
Monitor on diet.
Hold off therapeutic anticoag for 48hhours post-op
Continue Abx while admitted.
Assessment / Plan
-
Ms. Herrera is a 63 year-old female with no significant past medical history other than previous and known biliary colic with Acute Cholecystitis s/p Laparoscopic cholecystectomy with cholangiogram 09/02/2023
Acute Cholecystitis s/p Laparoscopic cholecystectomy with cholangiogram 09/02/2023
Elevated LFTs.
-Continue Abx while admitted.
- Trend LFTs, T.Sam
- Pain control with Tylenol 650mg q6 Silver, Dilaudid 0.5mg q2h PRN
-Monitor on Regular diet.
-Hold off therapeutic Anticoag for 48hrs.
New onset atrial fibrillation on presentation
-Now in normal sinus rhythm
-Cardiology following
-Hold off therapeutic anticoag for 48 hours
Subjective Data
-
Evaluated patient at bedside. Reports mild abdominal pain but overall improvement Post-op. Denies nausea, vomiting. Tolerated clear liquid. Passed gas.
Objective Data
-
Intake and Output
09/02/23 09/03/23 09/04/23
06:59 06:59 06:59
Intake Total 1700 / 1700
Output Total 1020 / 1020
Balance 680 / 680
Intake:
Oral fluids 750 / 750
IV fluids (Total) 850 / 850
normosol 100 / 100
IV piggybacks 100 / 100
Output:
Urine, Voided 1020 / 1020
Vital Signs
Temp Pulse Resp BP Pulse Ox
97.4 F 66 16 146/70 94
09/03/23 07:05 09/03/23 07:05 09/03/23 07:05 09/03/23 07:05 09/03/23 07:05
Lab Results
09/03/23 04:37
09/03/23 04:37
Calcium 9.2 mg/dl (8.4-10.2) 09/03/23 04:37
Magnesium 1.9 mg/dl (1.6-2.3) 09/03/23 04:37
Total Bilirubin 1.4 mg/dl (0.2-1.3) H 09/03/23 04:37
AST 569 U/L (14-36) H* 09/03/23 04:37
ALT 568 U/L (0-35) H* 09/03/23 04:37
Alkaline Phosphatase 127 U/L (38-126) H 09/03/23 04:37
Total Protein 7.3 g/dl (6.3-8.2) 09/03/23 04:37
Albumin 4.4 g/dl (3.5-5.0) 09/03/23 04:37
[2023-09-03] MEDS: ZETIA 10 MG PO (08:21)
[2023-09-03] MEDS: LOW STRENGTH ASPIRIN 81 MG PO (08:21)
[2023-09-03] MEDS: VITAMIN B-12 1000 MCG PO (08:21)
[2023-09-03] MEDS: VITAMIN D3 (cholecalciferol) 50 MCG PO (08:21)
--- NOTE | 2023-09-03 09:18 | W.PN.CD ---
Today's Communication / Plan
-
start eliquis 5mg bid tomorrow (and stop ASA)
add diltiazem
hold crestor/zetia in setting of rising LFT, and wait to resume until outpatient CMP to make sure LFT trending down
echo today for possible discharge
Impression / Plan
-
Acute cholecystitis
-doing well post op
Parox AFib:
-new diagnosis
-in setting of acute illness
-now back in SR, follow telemetry
-[id number] score is 4 for age, female, DM, and vascular disease. Will start eliquis 5mg bid tomorrow (surgery communication reviewed). Stop ASA.
-echo today
-add diltiazem today
CAD, non-obstructive:
-stable without CP
Moderate left carotid stenosis
-stable
Mild
-follow up echo
HLD:
-will hold crestor/zetia in setting of rising LFT until outpatient f/u CMP to make sure LFT improving
Physical Exam
Vital Signs/Labs
Vital Signs
Temp Pulse Resp BP Pulse Ox
97.4 F 66 16 146/70 94
09/03/23 07:05 09/03/23 07:05 09/03/23 07:05 09/03/23 07:05 09/03/23 07:05
09/02/23 09/03/23 09/04/23
06:59 06:59 06:59
Actual Weight 101 kg
09/03/23 04:37
09/03/23 04:37
PT 12.2 Sec (11.4-14.6) 09/02/23 07:41
INR 0.93 09/02/23 07:41
APTT 23.9 Sec (23.4-35.0) 09/02/23 07:41
Magnesium 1.9 mg/dl (1.6-2.3) 09/03/23 04:37
LAB Results
09/02/23
06:37
Troponin I < 0.012
Physical Exam
Constitutional: No acute distress and Comfortable
EENT: Moist mucous membranes
Cardiovascular: Rhythm & rate is regular, Pedal edema is absent, JVD pressure is normal and Systolic murmur present
Respiratory: Respiratory effort normal and Lungs clear to auscul.
Neuro/Psych: AO x 3
Data Reviewed
-
Date of Service: September 03, 2023
EKG: Other (SR 60s)
Labs: Labs Reviewed by me
[2023-09-03 09:42] LABS: Glycohemoglobin (HgbA1c) 5.9 % (4.0-5.6)
[2023-09-03 10:17] LABS: Glucose - Point of Care 187 mg/dl (70-99)
[2023-09-03 11:05] VITALS: BP 144/70
[2023-09-03] MEDS: CARDIZEM CD 120 MG PO (11:15)
[2023-09-03 15:07] VITALS: BP 145/70
--- NOTE | 2023-09-03 16:25 | CM ---
Patient seen at bedside. Patient lives with spouse in 2 story home and plan is for discharge tomorrow. Patient PCP is Dr. Shepard and she uses the [facility] in [place]. Patient states she was previously independent of ADL's and does not anticipate any
needs at discharge tomorrow. CM will continue to follow for discharge planning needs.
Plan; home with family no needs anticipated
[2023-09-03 19:44] VITALS: BP 168/69
[2023-09-03] MEDS: CELEXA 20 MG PO (20:52)
[2023-09-03] MEDS: XALATAN OPHTHALMIC SOLUTION 1 DROP BOTH EYES (20:53)
[2023-09-03 23:28] VITALS: BP 96/63
[2023-09-04] MEDS: ZOSYN 50 IV (00:10)
[2023-09-04 03:14] VITALS: BP 126/68
[2023-09-04] MEDS: SYNTHROID 25 MCG PO (06:24)
[2023-09-04 07:05] VITALS: BP 127/86
[2023-09-04] MEDS: CARDIZEM CD 120 MG PO (07:44)
[2023-09-04] MEDS: ELIQUIS 5 MG PO (07:44)
[2023-09-04] MEDS: VITAMIN D3 (cholecalciferol) 50 MCG PO (07:44)
[2023-09-04] MEDS: VITAMIN B-12 1000 MCG PO (07:44)
[2023-09-04] MEDS: TIMOPTIC 0.5% OPHTHALMIC SOLUTION 1 DROP BOTH EYES (07:46)
--- NOTE | 2023-09-04 07:52 | W.PN.HOSP.TC ---
Today's Communication/Plan
-
discharge
Assessment / Plan
Assessment / Plan
Physical Exam
General: Well Developed, Well Nourished, No Apparent Distress and Obese
HEENT: NormoCephalic, Anicteric, Moist mucous membranes and Atraumatic
Respiratory: Clear
Cardiac: S1/S2 and Regular Rhythm
GI: Soft, Non Distended and Tender
Musculoskeletal: No Clubbing, No Cyanosis and No Edema
Skin: Warm and Dry
Neuro: Awake, Alert and Oriented
Psych: Calm
HPI: 63-year-old female with a past medical history of coronary artery disease, hyperlipidemia, hypothyroidism, anxiety/depression, and biliary colic presented with worsening right upper quadrant abdominal pain. Patient reports that her pain woke
her up at 4 AM today. Associated symptoms include nausea and vomiting. En route to the emergency room, EMS found her to have rapid atrial fibrillation. She spontaneously converted to normal sinus rhythm. She denies chest pain, denies
lightheadedness, denies shortness of breath. She did have palpitations when she was in active atrial fibrillation, it has since resolved.
She follows with Dr. Coy for biliary colic, and was scheduled to have a laparoscopic cholecystectomy on 08/31/2023. However this had to be rescheduled.
#Acute calculus cholecystitis
#Dilated common bile duct
#Transaminitis
surgery eval appreciated s/p laparoscopic cholecystectomy and intraoperative cholangiogram
IVF completed
completed IV Zosyn 24h abx post-procedure as per surgery
trend LFTs, improving
#New onset paroxysmal atrial fibrillation in the setting of acute illness
Follows w/ Dr. Wasserman
Now back in normal sinus rhythm
TSH wnl
ECHO appreciated no acute abn's, no significant change from prior ECHO
Cardio appreciated switching asa to Eliquis starting 09/03, Cardizem added 09/02
#Hypokalemia
repleted/resolved
#Hypothyroidism
Continue Synthroid
TSH wnl
#CAD
Continue aspirin/statin
#Hyperlipidemia
Continue statin/Zetia
#Anxiety/depression
Continue SSRI
#Obesity
On ozempic for weight loss
A1c appreciated prediabetic 5.9
DVT ppx - SQ lovenox
Full Code
Medically stable for discharge home with outpatient follow up recommendations.
Discussed with patient
Total Time Preparing Discharge ___50____ minutes including examination of the patient, summary of the hospital stay, instructions for continuing care to all relevant caregivers; and preparation of discharge records, prescriptions, and referral
forms if necessary.
Anticipated Discharge: Today
Subjective/Interval History
-
Date of Service: September 04, 2023
Seen and examined at bedside no acute distress patient reports feeling well pain free tolerating diet. Denies any new acute issues, eager to go home.
Objective Data
-
Labs:
Laboratory Results
09/04/23
07:46
Sodium Pending
Potassium Pending
Chloride Pending
Carbon Dioxide Pending
BUN Pending
Creatinine Pending
Glucose Pending
Calcium Pending
Total Bilirubin Pending
AST Pending
ALT Pending
Alkaline Phosphatase Pending
Vital Signs:
Vital Signs
Temp Pulse Resp BP Pulse Ox
98.6 F 69 20 127/86 96
09/04/23 03:14 09/04/23 07:44 09/04/23 03:14 09/04/23 07:44 09/04/23 03:14
I&O
09/03/23 09/04/23 09/05/23
06:59 06:59 06:59
Intake Total 1700 / 1700 1250 / 1250
Output Total 1020 / 1020
Balance 680 / 680 1250 / 1250
[2023-09-04 08:27] LABS: ALT (SGPT) 338 U/L (0-35); AST (SGOT) 138 U/L (14-36); Alkaline Phosphatase 112 U/L (38-126); Blood Urea Nitrogen 15 mg/dl (7-17); Calcium 9.3 mg/dl (8.4-10.2); Carbon Dioxide 25 mmol/L (22-30); Chloride 106 mmol/L (98-107); Estimated Creatinine Clearance 93 ml/min; Glucose 118 mg/dl (70-99); Potassium 3.9 mmol/L (3.5-5.1); Sodium 141 mmol/L (135-145); Total Bilirubin 0.6 mg/dl (0.2-1.3); Total Protein 6.8 g/dl (6.3-8.2); eGFR > 60.00
[2023-09-04 11:30] VITALS: BP 151/87
--- NOTE | 2023-09-04 12:06 | W.PN.UPDATE ---
Update Note
Progress Note Update
Brief General surgery note.
LFTs improved. Okay for anticoagulation per primary/cards.
General surgery will sign off, discharge instructions placed. Patient to follow-up with me in 2 to 3 weeks.
--- NOTE | 2023-09-04 12:50 | W.DCSUMMARY ---
Discharge Summary
Discharge Data
Date of Admission: 09/02/23
Date of Discharge: 09/04/23
-
Pending Results: Yes
Additional Pending Results:
pathology results to be followed up with Surgery
Hospital Course
63-year-old female with a past medical history of coronary artery disease, hyperlipidemia, hypothyroidism, anxiety/depression, and biliary colic presented with worsening right upper quadrant abdominal pain. Patient reports that her pain woke her up
at 4 AM associate nausea and vomiting. En route to the emergency room, patient was in rapid atrial fibrillation. She spontaneously converted to normal sinus rhythm. Follows with Dr. Coy for biliary colic and was scheduled to have a laparoscopic
cholecystectomy on 08/31/2023. However this had to be rescheduled. Acute calculus cholecystitis, Dilated common bile duct, Transaminitis, surgery evaluated and performed laparoscopic cholecystectomy and intraoperative cholangiogram. Completed IV
Zosyn 24h abx post-procedure as per surgery recc's. LFTs improving. With regards to new onset paroxysmal atrial fibrillation, TSH wnl, ECHO appreciated no acute abn's, no significant change from prior ECHO. Cardio evaluated and switched asa to
Eliquis. Cardizem was also added. Medically stable, patient was discharged home with outpatient follow up recommendations.
Discharge Plan
-
Patient Disposition: Home (Routine Discharge)
Discharge Diagnosis/Procedures: Acute cholecystitis. Laparoscopic cholecystectomy with cholangiogram. Paroxysmal Atrial Fibrillation, Hyperlipidemia
Condition: Good
Diet: No restrictions
Activity: No strenuous activity
Driving Restrictions: As prior to admission
Bathing Restrictions: OK to Shower
Blood Work: Please repeat CBC and CMP with primary care provider in 1 week of discharge.
Activity Restrictions/Additional Instructions:
Please follow up with primary care provider in 1 week of discharge, Surgeon in 2-3 weeks of discharge, and keep your appointment with cardiology.
For atrial fibrillation you have been started on Cardizem for rate control and Eliquis for stroke risk reduction (Aspirin has been discontinued with start of Eliquis to reduce bleeding risk)
Rosuvastatin and Ezetimibe have been placed on hold due to Liver Dysfunction though resolving. Please follow up with primary care provider in 1 week of discharge to repeat CMP and determine if these medications are safe to resume.
Please take medications as prescribed/recommended and follow up with primary care provider and/or other healthcare provider involved in your care for refills and/or further adjustment to your medication regimen as necessary.
Instructions following Laparoscopic cholecystectomy
Please call [phone] if you have any questions or concerns after your surgery.
Wound Care:
Your incisions are covered with skin glue which will come off on it�s own in 5-10 days.
It is ok to shower the day after your surgery. Do not scrub the incisions, let soap and water wash over them and pat dry.
� Bruising around your incisions is normal.
� Using ice packs will help minimize this swelling.
� No swimming or soaking incisions for 1 week.
� Your stitches will dissolve and do not need to be removed.
Urinary retention:
If you are unable to urinate 6-8 hours after your surgery, please call [phone] to discuss further management.
Activity:
No heavy lifting more than 15 pounds for the next 3 weeks, then you may gradually lift heavier objects as tolerated by discomfort. Otherwise activity as tolerated by your comfort level.
Pain Management:
Use Tylenol, ibuprofen and ice packs to treat your pain.
� You may take 650 milligrams of Tylenol (Max 3 grams per day) every 6 hours, and 600 mg of ibuprofen also every 6 hours. (you can alternate them every 3 hours)
� You may use an ice pack to your incision as needed.
� If you still have pain not controlled by these measures, take your prescription pain medication as prescribed.
Medications:
You may resume your home medications.
Bowel Medications:
Prescription pain medication can make you constipated. If you take this medication, also take colace 100 mg twice daily (this is over the counter). If this is not sufficient, you may take Miralax (polyethylene glycol) to help move your bowels.
Diet:
After your procedure, there are no dietary restrictions. You may notice loose stools for up to 4 weeks after surgery with fatty meals, if this is the case you may have to adjust your diet as needed.
Driving restrictions:
No driving if you are taking prescription pain medication or if you think your normal reaction time and attentiveness has been slowed by your surgery.
Things to Look out for:
Worsening Abdominal pain, redness or drainage from incision
Call Doctor for:
Please call if you notice worsening redness or drainage from incision(s) lasting longer than 5 days after your surgery, any foul-smelling drainage from the incision, pain not controlled by pain medications, persistent nausea and vomiting, or for any
fevers greater than 101.3 F. The number for questions/concerns is [phone]
Follow-up:
Follow-up appointment will be scheduled with your surgeon in 2-3 weeks. Please call prior to your appointment if you have any questions or concerns. [phone]
Referrals:
Ania Jewell CRNP [Specified Professional Personl] - 09/13/23 10:40 am
Hussain Smiley MD [Active] - in two to three weeks
Dasia Colbert MD [Family Provider] - in one week
Prescriptions:
New
diltiazem HCl 120 mg Capsule,Extended Release 24hr
120 mg PO DAILY 30 Days Qty: 30 0RF
Eliquis 5 mg Tablet
5 mg PO BID 30 Days Qty: 60 0RF
Continued
furosemide 40 MG tablet
40 mg PO DAILYPRN PRN (Reason: fluid overload)
levothyroxine 25 MCG tablet
25 mcg PO Q48H
citalopram 20 MG tablet
20 mg PO HS
cholecalciferol (vitamin D3) 2,000 UNITS tablet
2,000 unit PO DAILY
Pts Own Cbd Tincture
14 mg PO HSPRN PRN (Reason: sleep)
latanoprost 0.005 % Drops
1 drp BOTH EYES HS
cyanocobalamin (vitamin B-12) 1,000 mcg Tablet
1,000 mcg PO DAILY
levothyroxine 50 mcg Tablet
50 mcg PO Q48H
bisacodyl [Dulcolax (bisacodyl)] 5 mg Tablet,Delayed Release (Dr/Ec)
5 mg PO DAILYPRN PRN (Reason: constipation)
dextroamphetamine-amphetamine 15 mg Capsule,Extended Release 24hr
15 mg PO DAILY
Ozempic 2 mg/dose (8 mg/3 mL) Pen Injector
2 mg SC SA
Timolol solution
1 drp BOTH EYES DAILY
Patient Comments:
pt states timolol is 0.5%
Held
rosuvastatin 20 MG tablet
20 mg PO HS
Hold Instructions: Follow up with primary care provider in 1 week of discharge for repeat CMP to determine when safe to resume
ezetimibe 10 mg Tablet
10 mg PO DAILY
Hold Instructions: Follow up with primary care provider in 1 week of discharge for repeat CMP to determine when safe to resume
Discontinued
aspirin 81 mg Tablet,Chewable
81 mg PO DAILY
Discharge Orders:
Discharge Patient (As Directed); Ordered 09/04/23
Ordered By: Martha Dan
Discharge Date and Time
Discharge Date/Time: 09/04/23 14:01
Print Language: MOROCCAN
--- NOTE | 2023-09-04 13:21 | CM ---
Patient has been medically cleared for discharge to home with no additional skilled services. Patient has arranged for transport home.
== END 2023-09-04 14:01 | disposition home or self-care (01) | DRG 419 ==
LOC: 2 SOUTH 12:43
PROVIDERS: ADMITTING PHYSICIAN Family Medicine; ATTENDING PHYSICIAN Internal Medicine; CONSULT PHYSICIAN Internal Medicine Cardiovascular Disease; CONSULT PHYSICIAN Surgery; EMERGENCY PHYSICIAN Emergency Medicine; FAMILY PHYSICIAN Family Medicine
PROC: 0FT44ZZ Resection of Gallbladder, Percutaneous Endoscopic Approach (ICD-10-PCS; 2023-09-02)
PROC: BF101ZZ Fluoroscopy of Bile Ducts using Low Osmolar Contrast (ICD-10-PCS; 2023-09-02)
PROC: B24BZZZ Ultrasonography of Heart with Aorta (ICD-10-PCS; 2023-09-03)
DX: K80.00 Calculus of gallbladder with acute cholecystitis without obstruction (principal); I48.0 Paroxysmal atrial fibrillation; I10 Essential (primary) hypertension; E03.9 Hypothyroidism, unspecified; G47.33 Obstructive sleep apnea (adult) (pediatric); K76.0 Fatty (change of) liver, not elsewhere classified; I25.10 Atherosclerotic heart disease of native coronary artery without angina pectoris; E78.00 Pure hypercholesterolemia, unspecified; I35.0 Nonrheumatic aortic (valve) stenosis; F41.9 Anxiety disorder, unspecified; F32.A Depression, unspecified; I65.22 Occlusion and stenosis of left carotid artery; K59.00 Constipation, unspecified; E87.6 Hypokalemia; E66.9 Obesity, unspecified; Z68.38 Body mass index [BMI] 38.0-38.9, adult; Z79.01 Long term (current) use of anticoagulants; Z79.85 Long-term (current) use of injectable non-insulin antidiabetic drugs; Z88.8 Allergy status to other drugs, medicaments and biological substances; Z85.72 Personal history of non-Hodgkin lymphomas
CPT/HCPCS: 88304; 74300; 76000; 76700; 80053; 82962; 83036; 83690; 83735; 84443; 84484; 85025; 85027; 85610; 85730; 93005; 93306; 96374; 96375; 99285

== ENCOUNTER → 2023-10-04 08:21 | Outpatient (REF) | payer OTHER, SELFPAY | LOC: DHCBC/DCA 08:21 | PROVIDERS: ATTENDING PHYSICIAN Nurse Practitioner Gerontology; FAMILY PHYSICIAN Family Medicine | DX: I25.10 Atherosclerotic heart disease of native coronary artery without angina pectoris (principal); I48.0 Paroxysmal atrial fibrillation | CPT/HCPCS: 78452; 93017; A9500 ==

== ENCOUNTER → 2024-03-04 14:45 | Outpatient (REF) | payer OTHER, SELFPAY | LOC: HWWDC 14:45 | PROVIDERS: ATTENDING PHYSICIAN Family Medicine; REFERRING PHYSICIAN Nurse Practitioner Adult Health | DX: Z12.31 Encounter for screening mammogram for malignant neoplasm of breast (principal) | CPT/HCPCS: 77063; 77067 ==

== ENCOUNTER → 2024-05-19 09:13 | Outpatient (REF) | payer OTHER, SELFPAY | LOC: RAD 09:13 | PROVIDERS: ATTENDING PHYSICIAN Internal Medicine; FAMILY PHYSICIAN Family Medicine | DX: I65.22 Occlusion and stenosis of left carotid artery (principal) | CPT/HCPCS: 93880 ==

== ENCOUNTER 2025-03-15 06:15 | Day surgery (SDC) | payer OTHER, SELFPAY ==
[2025-03-15] VITALS (13 sets, daily range): BP systolic 119–162; BP diastolic 62–83; BMI 34.4
[2025-03-15 08:42] LABS: Glucose - Point of Care 129 mg/dl (70-99)
[2025-03-15] MEDS: NORMOSOL-R/PLASMALYTE-A 1000 IV (08:42)
--- NOTE | 2025-03-15 11:16 | OR.RPT ---
Operative Report
Operative Report
Patient name: Samantha Herrera
: 1960

Date of procedure: 03/15/2025
Preoperative diagnosis: Nasal obstruction, deviated nasal septum, hypertrophy of nasal turbinates
Postoperative diagnosis: Same
Procedures performed: Septoplasty, inferior turbinate reduction (submucous resection)
Surgeon: Garrett Grimaldo DO
Anesthesiologist: Dr. Flower
Anesthesia: General, ETT
Surgical indications: Samantha is a 64-year-old woman who presented to the otolaryngology department with a longstanding history of nasal obstruction. She was found to have a severely deviated left nasal septum and turbinate hypertrophy. She was
started on nasal saline sprays, intranasal corticosteroids, intranasal antihistamines and oral antihistamines. Symptoms did not date with medical management and she was bothered by her degree of nasal obstruction. We discussed the risks benefits
and alternatives to surgical intervention with septoplasty and turbinate reduction and she elected to proceed after careful deliberation.
Details of procedure: The patient was met in the preoperative holding area where all questions were answered and informed written consent was reviewed. She was then taken back to the operating room and transferred supine on the operating room
table. A safety strap was placed. General anesthesia was induced by the anesthesia team and she was intubated orotracheally without difficulty. Afrin-soaked pledgets were placed in the bilateral nasal cavities for decongestion. A surgical
timeout was performed confirming the necessary perioperative information. 1% lidocaine with epinephrine 1 100,000 was then used to infiltrate the bilateral nasal cavities for topical anesthesia and vasoconstriction. 10 cc were. Next a #15 blade
was used to make a stab incision in the anterior head of each inferior turbinate. A [place] elevator was used to establish a submucous pocket along the length of the inferior turbinate and a turbinate blade on a microdebrider handpiece was used to
perform submucous resection. This was followed without fracture. This improved the nasal airway. Next a #15 blade was used to make a left hemitransfixion incision along the caudal aspect of the septal cartilage. A [place] elevator and iris
scissors were used to establish a submucous plane of dissection. A Priscilla elevator was then used to raise a submucoperichondrial flap from anterior to posterior and superior to inferior with care around the large left septal spur. Once passed the
bony cartilaginous junction, a #15 blade was then used to make a trans cartilaginous incision approximately 2 cm proximal to the caudal edge of the cartilage. A contralateral submucoperichondrial flap was then elevated. A window of deviated
cartilage was then resected using a septal scissor and a Priscilla elevator. Next the deviated fragments of bone and a large cartilaginous and bony septal spur were resected using a [place] forcep and [place] elevator. This improved the nasal airway
greatly. Additional deviated segments were removed with a double-action rongeur. The nasal airway was greatly improved and much more patent. The flaps were laid back down. The bilateral middle meati could be easily visualized. There was
adequate support. The turbinates were adequately outfractured. There was a substantially deviated left piece of maxillary crest. This was resected with a 4 mm osteotome and a mallet. Persistent bleeding was encountered after this was removed and
a suction Bovie on a setting of 25 coag was used for hemostasis. The left hemitransfixion incision was then closed using a 4-0 chromic stitch in a simple interrupted fashion. A quilting stitch was performed using a 4-0 plain gut suture in a
quilting fashion on a Berny needle. Cortes silicone splints with the inner tubes were trimmed off so that the splint was a flat sheet of silicone were placed in the bilateral nasal cavities and sewn in place with a trans cartilaginous 2-0 silk
suture. This concluded the procedure and the patient did very well. The anesthesia team then emerged her safely from anesthesia and she was extubated without difficulty. She was taken to the PACU in stable condition.
Specimens: Septal contents
Complications: None immediately present
Estimated blood loss: 10 cc
Disposition: Stable to PACU followed by discharge to home
[2025-03-15] MEDS: DILAUDID 0.5 MG IV (12:06)
[2025-03-15] MEDS: MOTRIN 600 MG PO (12:58)
[2025-03-15 13:39] LABS: Glucose - Point of Care 147 mg/dl (70-99)
[2025-03-15] MEDS: ROXICODONE 5 MG PO (14:37)
== END 2025-03-15 14:45 | disposition home or self-care (01) ==
LOC: SDS 06:15
PROVIDERS: ATTENDING PHYSICIAN Student in an Organized Health Care Education/Training Program
DX: J34.89 Other specified disorders of nose and nasal sinuses (principal); J34.2 Deviated nasal septum; J34.3 Hypertrophy of nasal turbinates
CPT/HCPCS: 30140; 82962; 88300